=== PATIENT | male | born 1935 | race Caucasian/White ===

== ENCOUNTER 2016-10-04 05:10 | Observation (INO) | payer BC ==
--- NOTE | ~2016-10-04 | TEE ---
Transesophageal Echocardiogram [facility] [address] [place]. [address] NAME: AMBER GILLESPIE : 37 STATUS : REG REF PAT#: [id number] AGE: 81 ADM/REG DATE : 10/04/16 MR#: [id number] REPORT SERV DATE: 10/04/16 DICTATED BY: DATE: REPORT STATUS : Draft TRANSCRIBED BY: MODL DATE: 10/04/16 CHIEF COMPLAINT/REASON FOR STUDY: Atrial fibrillation. Written informed consent obtained. Please see chart for documentation. PROCEDURE: With the assistance of my Anesthesia colleagues, Mr. Gillespie was sedated with IV propofol. The transesophageal probe was placed without complications. Salient 2D echocardiographic color and Doppler imaging were performed. ECHOCARDIOGRAPHIC FINDINGS: 1. The left ventricular systolic function was normal with a visually estimated ejection fraction of greater than 55%. 2. The right ventricle was normal in size and systolic function. 3. The left atrium was dilated. The left atrium contained no evidence of thrombus. 4. The right atrium had no evidence of thrombus, appeared normal in size. There was a mobile, thin echodensity at the junction of the right atrium and inferior vena cava consistent with Chiari network. 5. The mitral valve appeared structurally normal. There was trivial to mild color flow and Doppler evidence of mitral valvular regurgitation. 6. The tricuspid valve opened normally. There was no evidence of stenosis. There was mild tricuspid regurgitation. 7. The aortic valve was mildly sclerotic and trileaflet. There was no evidence of aortic valve stenosis or regurgitation via color Doppler. ASSESSMENT: 1. The pulmonary valve was well visualized and structurally normal without evidence of stenosis. There was trivial pulmonary valve regurgitation via color Doppler assessment. 2. There was no evidence of pericardial effusion. 3. The left atrial appendage was interrogated at multiple levels and depths. There was no evidence of left atrial appendage thrombus. Doppler velocities within the left atrial appendage were approximately 20 to 40 cm/second. 4. The right upper pulmonary vein and the left upper pulmonary vein were interrogated, there was no evidence of pulmonary vein flow reversal. IMPRESSION: 1. Normal left ventricular systolic function with a visually estimated ejection fraction of greater than 55%. 2. Dilated left atrium. 3. No evidence of left atrial or left atrial appendage thrombus. 4. Chiari network visualized at the junction of the right atrium and inferior vena cava. [facility] Nichelle Borjas Transesophageal Echocardiogram [address] [place]. [address] NAME: AMBER GILLESPIE : 37 STATUS : REG REF PAT#: [id number] AGE: 81 ADM/REG DATE : 10/04/16 MR#: [id number] REPORT SERV DATE: 10/04/16 DICTATED BY: DATE: REPORT STATUS : Draft TRANSCRIBED BY: MODL DATE: 10/04/16 Joao Rojas / [id number] CC: Marshall Lovell M.D.
[~2016-10-04 05:10] MED LIST: ASAB PO; ASPIRIN; COREG3 PO; HYDROCHLOROT25 MG PO; LANSOPRAZOLE; LOTE20 PO; NORV5 PO; PRAVAC PO; PRILOSEC10 MG PO; XARELTO15 MG PO
[2016-10-04 06:12] LABS: BASOPHILS 0.7 %; BASOPHILS ABSOLUTE 0.03 10/3/uL (0.0-0.16); EOSINOPHILS 4.2 %; EOSINOPHILS ABSOLUTE 0.18 10/3/uL (0.0-0.53); HEMATOCRIT 40.7 % (40.0-51.0); HEMOGLOBIN 13.6 g/dL (13.6-17.8); LYMPHOCYTES 31.4 %; LYMPHOCYTES ABSOLUTE 1.33 10/3/uL (0.67-4.30); MANUAL DIFF NO %; MEAN CORPUS HGB CONC 33.4 g/dL (32.0-36.0); MEAN CORPUSCULAR HEMOGLOB 29.2 pg (26.0-34.0); MEAN CORPUSCULAR VOLUME 87.3 fL (80-100); MEAN PLATELET VOLUME 9.8 fL (9.2-13.0); MONOCYTES ABSOLUTE 0.34 10/3/uL (0.21-1.20); NEUTROPHILS 55.7 %; NEUTROPHILS ABSOLUTE 2.36 10/3/uL (2.02-8.40); PLATELET COUNT 160 10/3/uL (150-400); RBC DISTRIBUTION WIDTH 14.2 % (12.0-16.0); RED CELL COUNT 4.66 10/6/uL (4.7-6.1); WHITE BLOOD CELLS 4.2 10/3/uL (4.5-10.5)
[2016-10-04 06:22] LABS: BUN (BLOOD UREA NITROGEN) 23 MG/DL (6-23); CALCIUM, SERUM 9.4 MG/DL (8.5-10.4); CHLORIDE, SERUM 105 MMOL/L (96-112); CO2 (CARBON DIOXIDE) 32 MMOL/L (24-34); CREATININE 1.21 MG/DL (0.70-1.30); GFR AFRICAN AMERICAN 65 ML/MIN (>=60); GFR NON AFRICAN AMERICAN 56 ML/MIN (>=60); GLUCOSE, SERUM 110 MG/DL (60-99); POTASSIUM, SERUM 3.5 MMOL/L (3.5-5.3); SODIUM, SERUM 141 MMOL/L (135-148)
== END 2016-10-05 09:07 | disposition home or self-care (01) ==
LOC: ECHOVAS 05:10 → SSU1 05:25
PROVIDERS: Internal Medicine Cardiovascular Disease
PROC: 02583ZZ Destruction of Conduction Mechanism, Percutaneous Approach (ICD-10-PCS; principal; 2016-10-04)
PROC: 02K83ZZ Map Conduction Mechanism, Percutaneous Approach (ICD-10-PCS; 2016-10-04)
DX: I48.0 Paroxysmal atrial fibrillation (principal); I49.5 Sick sinus syndrome; I71.4 Abdominal aortic aneurysm, without rupture; I10 Essential (primary) hypertension; I82.409 Acute embolism and thrombosis of unspecified deep veins of unspecified lower extremity; E78.00 Pure hypercholesterolemia, unspecified; Z88.0 Allergy status to penicillin; Z88.5 Allergy status to narcotic agent; Z79.82 Long term (current) use of aspirin; Z79.899 Other long term (current) drug therapy; Z87.891 Personal history of nicotine dependence; Z96.1 Presence of intraocular lens; Z90.89 Acquired absence of other organs; Z98.890 Other specified postprocedural states; Z96.651 Presence of right artificial knee joint
CPT/HCPCS: 80048; 82962; 85025; 85347; 93005; 93312; 93320; 93325; 93613; 93656; 93662; 96374; A9270-GY; C1732; C1759; C1781; C1894; G0378; J1940; J2405; J2710; Q9967